=== PATIENT | male | born 1985 | race African-American/Black ===

== ENCOUNTER 2016-09-09 15:54 | Inpatient (IN) | payer MEDICAID, OTHER ==
[~2016-09-09] VITALS: Ht 172.7 cm; Wt 81.6 kg
[2016-09-09 16:00] VITALS: BP 119/76; PULSE 59; RESP 18; TEMP 96.9; O2SAT 99
[2016-09-09] MEDS: SODIUM CHLOR 0.9% 1000 ML INJ 1,000 ML IV SCH ×2 (16:20→20:46)
--- NOTE | 2016-09-09 16:24 | HHI.HP ---
[facility] No Primary Care Physician Admission Diagnosis appendicitis, Crohn's Diagnoses: Chief Complaint: abdominal pain Travel History International Travel<30 Days: No Contact w/Intl Traveler <30 Da: No Traveled to Known Affected Are: No History of Present Illness 31 year old male w/ hx of Crohn's presented to hospital with right side abdominal pain that started 3am this morning. The pain was achey. He admits to doing alot of abdominal exercises prior and says in the past that has precipitated a Crohn's flare up for him. He says if feels like his last Crohn's exacerbation which was 1.5 years ago. He was first diagnosed with Crohn's 9 years ago. His last colonoscopy and EGD was 2-[address] Greene. Per pt, the colonoscopy indicated healing ulcers and the EGD showed that his disease was "worse on top half." He has tried asacol in the past but had a reaction to it. His last exacerbation 1.5 y ago he was in the hospital for and they told him he had an obstruction, put him on liquid diet, and gave him prednisone. At that time it was initially thought he had appendicitis. He takes not regular medications for Crohn's. He felt improvement in frequency of flareups 3 y ago since switching to healthier organic diet. No n/v, diarrhea, fever. Review of Systems Except as stated in HPI: all other systems reviewed are Neg Past Family Social History Past Medical History Crohn's Asthma- childhood Past Surgical History Cyst removal left wrist Allergies: Coded Allergies: Penicillin (Verified Allergy, Severe, Itching, 09/09/16) Family History Mother HTN Social History Denies ETOH, tobacco, illicit drug use Physical Exam Physical Exam GENERAL: This is a well-nourished, well-developed patient, in no apparent distress. SKIN: No rashes, ecchymoses or lesions. Cool and dry. HEAD: Atraumatic. Normocephalic. No temporal or scalp tenderness. EYES: Pupils equal round and reactive. Extraocular motions intact. No scleral icterus. No injection or drainage. ENT: Nose without bleeding, purulent drainage or septal hematoma. Throat without erythema, tonsillar hypertrophy or exudate. Uvula midline. Airway patent. NECK: Trachea midline. No JVD or lymphadenopathy. Supple, nontender, no meningeal signs. CARDIOVASCULAR: Regular rate and rhythm without murmurs, gallops, or rubs. RESPIRATORY: Clear to auscultation. Breath sounds equal bilaterally. No wheezes , rales, or rhonchi. GASTROINTESTINAL: Abdomen soft, tenderness RUQ, epigastric,nondistended. No hepato-splenomegaly, or palpable masses. No guarding. MUSCULOSKELETAL: Extremities without clubbing, cyanosis, or edema. No joint tenderness, effusion, or edema noted. No calf tenderness. Negative Homans sign bilaterally. NEUROLOGICAL: Awake and alert. Cranial nerves II through XII intact. Motor and sensory grossly within normal limits. Five out of 5 muscle strength in all muscle groups. Normal speech. Assessment and Plan Assessment and Plan Abdominal pain Cholecystitis Crohn's exacerbation WBC normal. No temp. CT 09-09-16 --> findings most consistent with acute appendicitis in this pt w/ hx Crohns disease. Patient with hx Crohn's, however not on any medication for it, says she is managing it naturally. Used to follow with Dr Greene as OP. Last colonoscopy 2- 3 yrs ago w/ Dr Greene and indicated healing ulcers; EGD showed worse disease on "top half" per pt. No n/v or diarrhea or blood in stool. GS consulted for poss appendicitis Consult GI , appreciate recommendations Seen b y surgery . CT abd scan reviewed and also findings discussed with Dr Oden. He recommends restarting patient pentasa and start steroids.Start pentasa and prednisone Start clears, not a surgical candidate Consider colonoscopy and EGD DVT ppx SCD/TEDs Discussed Condition With patient, nurse, ED physician , Dr Carpenter GI specialist, Dr Oden surgeon Physician Certification 2 Midnight Certification Type: Admission for Inpatient Services Order for Inpatient Services The services are ordered in accordance with Medicare regulations or non- Medicare payer requirements, as applicable. In the case of services not specified as inpatient-only, they are appropriately provided as inpatient services in accordance with the 2-midnight benchmark. Estimated LOS (days): 3 days is the estimated time the patient will need to remain in the hospital, assuming treatment plan goals are met and no additional complications. Post-Hospital Plan: Home Aster Baeza MD September 09, 2016 16:24
[2016-09-09] MEDS ORDERED: HYDROmorphone HCL PF 1 MG/ML VIAL IV PRN (16:30)
[2016-09-09] MEDS ORDERED: SODIUM CHLORIDE 0.9% FLUSH 10 ML FLUSH IV FLUSH PRN (16:30)
[2016-09-09] MEDS ORDERED: ACETAMINOPHEN/HYDROcodone 325 MG/5 MG TAB PO PRN (16:30)
[2016-09-09] MEDS ORDERED: NALOXONE HCL 0.4 MG/ML AMP IV PRN (16:30)
[2016-09-09] MEDS ORDERED: PROCHLORPERAZINE 25 MG SUPP RECTAL PRN (16:30)
[2016-09-09] MEDS ORDERED: ACETAMINOPHEN 325 MG TAB PO PRN ×2 (16:30)
[2016-09-09] MEDS ORDERED: TEMAZEPAM 15 MG CAP PO PRN (16:30)
[2016-09-09] MEDS ORDERED: ACETAMINOPHEN/HYDROcodone 325 MG/7.5 MG TAB PO PRN (16:30)
[2016-09-09] MEDS ORDERED: ONDANSETRON HCL 4 MG/2 ML VIAL IVP PRN (16:30)
--- NOTE | 2016-09-09 17:55 | PD.CONS ---
HPI History of Present Illness This is a 31 year old [gentleman] w/ hx of Crohn's presented to hospital with right side abdominal pain that started 3am this morning. The pain was achey. He admits to doing alot of abdominal exercises prior and says in the past that has precipitated a Crohn's flare up for him. He says if feels like his last Crohn's exacerbation which was 1.5 years ago. He was first diagnosed with Crohn's 9 years ago. His last colonoscopy and EGD was 2-[address] Greene. Per pt, the colonoscopy indicated healing ulcers and the EGD showed that his disease was "worse on top half." He has tried asacol in the past but had a reaction to it. His last exacerbation 1.5 y ago he was in the hospital for and they told him he had an obstruction, put him on liquid diet, and gave him prednisone. At that time it was initially thought he had appendicitis. He takes not regular medications for Crohn's. He felt improvement in frequency of flareups 3 y ago since switching to healthier organic diet. No n/v, diarrhea, fever. (Cristine Garcia) PFSH Past Medical History asthma- childhood Past Surgical History cyst removal left wrist (Cristine Garcia) Coded Allergies: Penicillin (Verified Allergy, Severe, Itching, 09/09/16) Medications Current Medications Medications (Trade) Dose Ordered Sig/Hansa Route PRN Reason Start Time Stop Time Status Last Admin Dose Admin Sodium Chloride (NS 1000 ml Inj) 1,000 ml @ 100 mls/hr Q10H IV 09/09/16 16:20 UNV Sodium Chloride (NS Flush) 2 ml UNSCH PRN IV FLUSH FLUSH AFTER USING IV ACCESS 09/09/16 16:30 UNV Sodium Chloride (NS Flush) 2 ml BID IV FLUSH 09/09/16 21:00 Acetaminophen (Tylenol) 650 mg Q4H PRN PO TEMP > 100.4 09/09/16 16:30 UNV Ondansetron HCl (Zofran Inj) 4 mg Q6H PRN IVP NAUSEA OR VOMITING 09/09/16 16:30 Prochlorperazine (Compazine Supp) 25 mg Q12H PRN PA NAUSEA OR VOMITING 09/09/16 16:30 UNV Temazepam (Restoril) 15 mg HS PRN PO INSOMNIA 09/09/16 16:30 UNV Acetaminophen (Tylenol) 650 mg Q6H PRN PO PAIN SCALE 1 TO 2 09/09/16 16:30 UNV Acetaminophen/ Hydrocodone Bitart ([place] 5-325 Mg) 1 tab Q4H PRN PO PAIN SCALE 3 TO 5 09/09/16 16:30 UNV Acetaminophen/ Hydrocodone Bitart ([place] 7.5-325 Mg) 1 tab Q4H PRN PO PAIN SCALE 6 TO 10 09/09/16 16:30 UNV Hydromorphone HCl (Dilaudid Pf Inj) 1 mg Q3H PRN IV BREAKTHROUGH PAIN 09/09/16 16:30 UNV Naloxone HCl (Narcan Inj) 0.4 mg UNSCH PRN IV SEE LABEL COMMENTS 09/09/16 16:30 UNV Family History HTN- mother Social History denies ETOH, tobacco, illicit drug use (Cristine Garcia) Review of Systems Constitutional: DENIES: Fever Ears, nose, mouth, throat: DENIES: Hearing loss Respiratory: DENIES: Cough Cardiovascular: DENIES: Chest pain Gastrointestinal: COMPLAINS OF: Abdominal pain, DENIES: Black stools, Bloody stools, Constipation, Diarrhea, Nausea, Vomiting Genitourinary: DENIES: Hematuria Musculoskeletal: DENIES: Joint pain Integumentary: DENIES: Abnormal pigmentation Hematologic/lymphatic: DENIES: Bruising Neurologic: DENIES: Abnormal gait Psychiatric: DENIES: Confusion (Cristine Garcia) GI Exam Vitals I&O Vital Signs Date Time Temp Pulse Resp B/P Pulse Ox O2 Delivery O2 Flow Rate FiO2 09/09/16 16:00 96.9 59 18 119/76 99 Physical Examination HEENT: EOMI; normocephalic; atraumatic; no jaundice. CHEST: CTA CARDIAC: RRR ABDOMEN: Soft, nondistended, mild TTP epigastric area and right side abd; no hepatosplenomegaly; bowel sounds are present in all four quadrants. EXTREMITIES: No clubbing, cyanosis, or edema. SKIN: Normal; no rash; no jaundice. GRILL ASSOCIATE: No focal deficits; alert and oriented times three. (Cristine Garcia) Assessment and Plan Plan ASSESSMENT - abdominal pain - WBC WNL. started in RLQ but currently pt has tenderness right side and epigastric area. CT 09-09-16 --> findings most consistent with acute appendicitis in this pt w/ hx Crohns disease. pt with hx Crohn's, not on any medication for it. Last colonoscopy 2-3 yrs ago w/ Dr Greene and indicated healing ulcers; EGD showed worse disease on "top half" per pt. No n/v or diarrhea or blood in stool. GS consulted for poss appendicitis PLAN: - NPO until GS sees pt - clears after GS sees pt, if no surgery - Consider colonoscopy and EGD if emergent appendicitis ruled out - further recommendations as case unfolds This pt was seen by myself and Dr Carpenter and this note is written on her behalf. (Cristine Garcia) Physician Comments seen, examined agree with above awaiting surgical consult we will start Flagyl/cipro, (Estrella Carpenter MD) Cristine Garcia September 09, 2016 17:55 Estrella Carpenter MD September 09, 2016 18:22
[2016-09-09 19:32] LABS: BLOOD, URINE NEG (NEG); COMMENT (UR) CULT NOT INDICATED; CULTURE IF INDICATED CULT NOT INDICATED; GLUCOSE,URINE NEG (NEG); KETONE, URINE TRACE mg/dL (NEG); NITRITE,URINE NEG (NEG); PH, URINE 6.5 (5.0-8.5); SQUAMOUS EPITHELIAL CELL URINE <1 /hpf (0-5); URINE COLOR YELLOW (YELLW/STRAW)
[2016-09-09 20:00] VITALS: BP 117/68; PULSE 60; RESP 17; TEMP 95.6; O2SAT 95
[2016-09-09] MEDS: SODIUM CHLORIDE 0.9% FLUSH 10 ML FLUSH IV FLUSH SCH (20:46)
[2016-09-09] MEDS: metroNIDAZOLE 500 MG INJ 100 ML IV SCH (20:46)
[2016-09-09] MEDS: CIPROFLOXACIN 400 MG PREMIX 200 ML IV SCH (20:46)
[2016-09-09] MEDS: predniSONE 50 MG TAB PO SCH (21:01)
[2016-09-09] MEDS: MESALAMINE 250 MG CAP PO SCH (21:02)
--- NOTE | 2016-09-09 22:31 | MB ---
cc: ROSSY SERRATO DATE OF CONSULTATION 09/09/16 REASON FOR CONSULTATION Rule out appendicitis. HISTORY OF PRESENT ILLNESS Mr. Vásquez is a very pleasant 31-year-old gentleman with a longstanding history of Crohn's disease. Apparently, he was diagnosed as a teenager. He reports multiple previous flare-ups. He states he has been doing well for approximately a year until this morning when he woke up at 3:00 a.m. with some crampy type abdominal pain, mainly in the periumbilical region. The patient reports this is very similar to his previous Crohn's episode approximately a year ago. He states that this episode today was not as severe as his previous episodes. He is followed apparently by Dr. Greene, rehabilitation services coordinator, but is not currently taking any Crohn's medications. He reports no fever or chills. He just describes a crampy type abdominal pain. He states that he is feeling better now. He was initially seen and evaluated in [place] [facility] the [facility] by Dr. Luz. Dr. Luz did a CT scan of the abdomen and pelvis which showed a thickened appendix and she was concerned about possible appendicitis. However, upon further review, the CT also demonstrates thickening and inflammatory change of the terminal ileum which is most consistent with acute Crohn's exacerbation. Surgical consultation was requested for evaluation of the appendicitis and the Crohn's disease. As stated, once the patient arrived to [facility] he states he is feeling much better. He is hungry and would like something to eat. He states that this is a typical Crohn's flare up for him. He denies any right lower quadrant abdominal pain. He denies any difficulty moving around. Overall, he states he feels pretty good and was wanting to get something to eat. PAST MEDICAL HISTORY 1. Crohn's disease 2. Asthma. PAST SURGICAL HISTORY Cyst removed from his left wrist. MEDICATIONS He takes no active medications at this time. His Crohn's disease is managed by diet according to him. ALLERGIES PENICILLIN SOCIAL HISTORY Denies alcohol or cigarette use. [place] [facility] with his and daughter. FAMILY HISTORY Remarkable for only hypertension. He denies any other Crohn's disease. REVIEW OF SYSTEMS The patient denies any nausea, vomiting, fever or chills. He reports normal bowel movement yesterday that was kind of loose. He denies any right lower quadrant abdominal pain. PHYSICAL EXAMINATION VITAL SIGNS: Temperature is 96.9, pulse is 60, blood pressure 120/70. GENERAL: This is a pleasant -[place] male sitting in bed who appears in no discomfort whatsoever watching TV with his and daughter. HEENT: Pupils equal, round, reactive light. Sclerae are white. Oropharynx is clear and moist. NECK: Supple. No masses. LUNGS: Clear to auscultation bilaterally. HEART: S1, S2, no murmur. ABDOMEN: Soft, Minimal periumbilical tenderness. No rebound or guarding. Active bowel sounds are noted. No right lower quadrant pain. Negative psoas sign, negative Rovsing's sign. EXTREMITIES: Free range of motion x4. NEUROLOGIC: Alert and oriented times three LABORATORY DATA White blood cell count is normal at 6.6, hemoglobin 14, platelet count is 368. He has 82% neutrophils. His electrolytes are all within normal limits. IMAGING STUDIES CT pelvis reviewed with Dr. Roberto Lockhart, demonstrates what to me looks like acute Crohn's exacerbation. He has a distended thickened terminal ileum with fecalization of the small bowel contents. There is also thickening of the cecum. The appendix does appear enlarged, but I do not see any acute inflammatory change directly around the appendix. I believe that the thickened and large appendix is likely secondary to edema from the cecum and terminal ileum from the Crohn's disease. IMPRESSION AND PLAN 1. Acute Crohn's exacerbation. 2. Incidental thickening and enlargement of the appendix likely secondary to the Crohn's disease. At this point, I advised the patient I do not think he has clinical appendicitis. I advised him that I would not recommend surgical intervention in an acute Crohn's exacerbation. I advised him if we attempted to do an appendectomy on him that there was a high chance he would have a fistula where the bowel was resected. He is not interested in surgery at this time. He feels very confident this is an acute Crohn's exacerbation, as it is very similar to his previous events. His states that he had Pentasa before and a steroid taper and this resolved his exacerbation within a day or two previously. I recommended to Dr. Rowe that we get a GI consult and treat him for an acute Crohn's exacerbation. I have advised her he can be started on a diet. I have recommended he be started on steroids and Pentasa as this seemed to work for him before. We will follow him up on his clinical exam over the weekend, but I do not believe this is acute appendicitis. MD SERENA Salinas/ /9:48 PM /10:15 PM
[2016-09-10] VITALS: BP 124/68; PULSE 68; RESP 17; TEMP 97.2; O2SAT 97
[2016-09-10 01:44] VITALS: O2SAT 94
[2016-09-10] MEDS: metroNIDAZOLE 500 MG INJ 100 ML IV SCH ×2 (04:32→11:36)
[2016-09-10 07:31] LABS: ALKALINE PHOSPHATASE 62 U/L (45-117); ALT (GPT) 39 U/L (12-78); ANION GAP 8 MEQ/L (5-15); AST (GOT) 29 U/L (15-37); BICARBONATE 24.4 MEQ/L (21.0-32.0); BLOOD UREA NITROGEN 14 MG/DL (7-18); CHLORIDE 105 MEQ/L (98-107); GLOMERULAR FILTRATION RATE 119 ML/MIN (>89); POTASSIUM 4.2 MEQ/L (3.5-5.1); SODIUM (NA) 137 MEQ/L (136-145); TOTAL BILIRUBIN ADULT 0.7 MG/DL (0.2-1.0)
[2016-09-10 08:00] VITALS: BP 108/55; PULSE 63; RESP 16; TEMP 96.3; O2SAT 95
[2016-09-10] MEDS: CIPROFLOXACIN 400 MG PREMIX 200 ML IV SCH (08:08)
[2016-09-10] MEDS: predniSONE 50 MG TAB PO SCH (08:10)
[2016-09-10] MEDS: MESALAMINE 250 MG CAP PO SCH ×2 (08:10→13:31)
[2016-09-10] MEDS: SODIUM CHLORIDE 0.9% FLUSH 10 ML FLUSH IV FLUSH SCH (08:10)
--- NOTE | 2016-09-10 09:14 | HHI.PR ---
Subjective Remarks Says he feels much better. Pain sided. Denies chest pain shortness of breath. No nausea, vomiting, diarrhea or constipation he had normal bowel movement. Since he would like to go home. Says she's been a follow-up with Dr. Greene ( his OP Dr) as outpatient and his will like to do EGD and colonoscopy as outpatient. He wants to go home. Objective Vitals Vital Signs Date Time Temp Pulse Resp B/P Pulse Ox O2 Delivery O2 Flow Rate FiO2 09/10/16 08:00 96.3 63 16 108/55 95 09/10/16 01:44 94 09/10/16 00:00 97.2 68 17 124/68 97 09/09/16 20:00 95.6 60 17 117/68 95 09/09/16 16:00 96.9 59 18 119/76 99 I/O 09/09/16 09/09/16 09/09/16 09/10/16 09/10/16 09/10/16 07:00 15:00 23:00 07:00 15:00 23:00 Intake Total 480 ml 1000 ml Balance 480 ml 1000 ml Intake Oral 480 ml 240 ml IV Total 760 ml # Voids 2 2 Result Diagram: 09/10/16 0540 Objective Remarks GENERAL: This is a well-nourished, well-developed patient, in no apparent distress. SKIN: No rashes, ecchymoses or lesions. Cool and dry. HEAD: Atraumatic. Normocephalic. No temporal or scalp tenderness. EYES: Pupils equal round and reactive. Extraocular motions intact. No scleral icterus. No injection or drainage. ENT: Nose without bleeding, purulent drainage or septal hematoma. Throat without erythema, tonsillar hypertrophy or exudate. Uvula midline. Airway patent. NECK: Trachea midline. No JVD or lymphadenopathy. Supple, nontender, no meningeal signs. CARDIOVASCULAR: Regular rate and rhythm without murmurs, gallops, or rubs. RESPIRATORY: Clear to auscultation. Breath sounds equal bilaterally. No wheezes , rales, or rhonchi. GASTROINTESTINAL: Abdomen soft, nontender, nondistended. No hepato-splenomegaly , or palpable masses. No guarding. MUSCULOSKELETAL: Extremities without clubbing, cyanosis, or edema. No joint tenderness, effusion, or edema noted. No calf tenderness. Negative Homans sign bilaterally. NEUROLOGICAL: Awake and alert. Cranial nerves II through XII intact. Motor and sensory grossly within normal limits. Five out of 5 muscle strength in all muscle groups. Normal speech. A/P Assessment and Plan Abdominal pain Cholecystitis Crohn's exacerbation WBC normal. No temp. CT 09-09-16 --> findings most consistent with acute appendicitis in this pt w/ hx Crohns disease. Patient with hx Crohn's, however not on any medication for it, says she is managing it naturally. Used to follow with Dr Greene as OP. Last colonoscopy 2- 3 yrs ago w/ Dr Greene and indicated healing ulcers; EGD showed worse disease on "top half" per pt. No n/v or diarrhea or blood in stool. GS consulted for poss appendicitis Consult GI , appreciate recommendations Seen b y surgery . CT abd scan reviewed and also findings discussed with Dr Oden. He recommends restarting patient pentasa and start steroids.Start pentasa and prednisone Not a surgical candidate Consider colonoscopy and EGD, however patient improved. and he is refusing colonoscopy /EGD , wants to go home and to follow up as OP with Dr Greene. Says she will do as OP EGD/colonoscopy. Plan to DC patient today if tolerated diet./ Wiill continue abx, pentasa and also tapered dose of prednisone at home. To follow up as OP with PCP and consultants. DVT ppx SCD/TEDs Discussed Condition With patient, nurse Discharge plan: DC home in stable condition Medications per med reconciliation Diet regular as tolerated Activity Ad haylee Follow-up with PCP and consultants as outpatient. To do EGD and colonoscopy as outpatient with his doctor. Aster Baeza MD September 10, 2016 09:14
[2016-09-10 12:00] VITALS: BP 111/60; PULSE 59; RESP 17; TEMP 96.3; O2SAT 97
[2016-09-10] MEDS: SODIUM CHLOR 0.9% 1000 ML INJ 1,000 ML IV SCH (12:20)
--- NOTE | 2016-09-10 12:35 | HHI.GIFU ---
Subjective Remarks Resting in bed. No n/v. No abdominal pain at this time. Wants to eat. Hoping to be discharged today. Did discuss with patient importance of egd/ colonoscopy, but he is very reluctant to stay in hospital because he has plans for Mother's Day. (Michell Lazcano) Objective Vitals I&O Vital Signs Date Time Temp Pulse Resp B/P Pulse Ox O2 Delivery O2 Flow Rate FiO2 09/10/16 12:00 96.3 59 17 111/60 97 09/10/16 08:00 96.3 63 16 108/55 95 09/10/16 01:44 94 09/10/16 00:00 97.2 68 17 124/68 97 09/09/16 20:00 95.6 60 17 117/68 95 09/09/16 16:00 96.9 59 18 119/76 99 I/O 09/09/16 09/09/16 09/09/16 09/10/16 09/10/16 09/10/16 07:00 15:00 23:00 07:00 15:00 23:00 Intake Total 480 ml 1000 ml Balance 480 ml 1000 ml Intake Oral 480 ml 240 ml IV Total 760 ml # Voids 2 2 Laboratory Laboratory Tests Test 09/09/16 09/10/16 17:40 05:40 Urine Color YELLOW Urine Turbidity CLEAR Urine pH 6.5 Urine Specific [place] GREATER THAN 1.050 Urine Protein TRACE Urine Glucose (UA) NEG Urine Ketones TRACE Urine Occult Blood NEG Urine Nitrite NEG Urine Bilirubin NEG Urine Urobilinogen LESS THAN 2.0 Urine Leukocyte Esterase NEG Urine WBC 3 Urine Squamous Epithelial <1 Cells Microscopic Urinalysis Comment CULT NOT INDICATED Sodium Level 137 Potassium Level 4.2 Chloride Level 105 Carbon Dioxide Level 24.4 Anion Gap 8 Blood Urea Nitrogen 14 Creatinine 0.90 Estimat Glomerular Filtration 119 Rate Random Glucose 114 Calcium Level 8.6 Total Bilirubin 0.7 Aspartate Amino Transf 29 (AST/SGOT) Alanine Aminotransferase 39 (ALT/SGPT) Alkaline Phosphatase 62 Total Protein 7.[address] scan abdomen and pelvis with iv contrast (09/09/16)-----> Findings most consistent with acute appendicitis in this patient with history of Crohn's disease. Low density, fat containing lesions in the kidney. These may be angiomyolipoma and could be further evaluated with MRI when the patient is clinically stable. Physical Exam HEENT: Normocephalic; atraumatic; no jaundice. CHEST: CTA CARDIAC: RRR ABDOMEN: Soft, nondistended, nontender; no hepatosplenomegaly; bowel sounds are present in all four quadrants. EXTREMITIES: No clubbing, cyanosis, or edema. SKIN: Normal; no rash; no jaundice. SCALEMAN: No focal deficits; alert and oriented times three. (Michell Lazcano) Assessment and Plan Plan ASSESSMENT: - Crohn's exacerbation. Dx ~5 years ago. Most recently on Pentasa, but has been off for the past 3 years. Last colonoscopy was 3 years ago, Dr. Greene, does not currently have insurance and therefore has not been to see him recently. States he has both small and large bowel disease. CT scan abdomen and pelvis with iv contrast (09/09/16)-----> Findings most consistent with acute appendicitis in this patient with history of Crohn's disease. Low density, fat containing lesions in the kidney. These may be angiomyolipoma and could be further evaluated with MRI when the patient is clinically stable. He is on Pentasa and Prednisone. Recommend further evaluation with EGD/Colonoscopy, but patient is very reluctant to go home tomorrow, as he has plans for Mother's Day. If patient does leave, recommend FU in office for further evaluation and treatment. - Abdominal pain, related to above. IMPROVED. PLAN: - Diet as tolerated - Cont. Pentasa - Cont. Prednisone - Cont. Cipro/Flagyl - CBC in am - Supportive care - Further recommendations to follow based on results of above - PT seen and examined by Dr. Carpenter and myself and this note is written on her behalf. - This pt was seen by myself and Dr Carpenter and this note is written on her behalf. (Michell Lazcano) Physician Comments seen, examined agree with above egd/colonoscopy can be done op at his convenience if he is not willing to stay in hospital until Monday,information provided to contact office if dc fu gi in 1-2 weeks Pentasa as ordered advice to call office to enroll in patient assistance program also may consider research study if willing to-information provided if he remains hospitalized egd/colon Monday, if not op if he wishes to go home ok to dc on current regimen (Estrella Carpenter MD) JaleesaMichell Reyna AUGUSTIN September 10, 2016 12:35 Estrella Carpenter MD September 10, 2016 13:40
[2016-09-10] MEDS ORDERED: PRED10PA PO (13:25)
[2016-09-10] MEDS ORDERED: MESA250 PO (13:25)
--- NOTE | 2016-09-10 13:25 | HHI.DCPOC ---
Discharge Care Plan Goals to Promote Your Health * To prevent worsening of your condition and complications * To maintain your health at the optimal level Directions to Meet Your Goals Take your medications as prescribed Follow your dietary instruction Follow activity as directed Keep your appointments as scheduled Take your immunizations and boosters as scheduled If your symptoms worsen call your PCP, if no PCP go to Urgent Care Center or Emergency Room Smoking is Dangerous to Your Health. Avoid second hand smoke Call the 24-hour hour crisis hotline for domestic abuse at Aster Baeza MD September 10, 2016 13:25
--- NOTE | 2016-09-10 13:30 | EKG ---
Date Performed: 09/09/2016 Time Performed: 17:05:37 PTAGE: 31 years EKG: SINUS BRADYCARDIA BORDERLINE ECG NO PREVIOUS TRACING DOCTOR: Edwina Dent Interpretating Date/Time 09/10/2016 13:28:11
[2016-09-10] MEDS ORDERED: CIPR500T2 PO (13:46)
[2016-09-10] MEDS ORDERED: METR-1 PO (13:46)
[2016-09-10 16:00] VITALS: BP 117/73; PULSE 75; RESP 16; TEMP 97; O2SAT 97
== END 2016-09-10 17:30 | disposition home or self-care (01) | DRG 387 ==
LOC: HOR 15:54 → N07B 16:04
PROVIDERS: ADMIT Hospitalist; ATTEND Hospitalist
DX: K50.918 Crohn's disease, unspecified, with other complication (principal); J45.909 Unspecified asthma, uncomplicated; Z88.0 Allergy status to penicillin
CPT/HCPCS: 74177; 80053; 81001; 83690; 85025; 85610; 85730; 93005; 96374; 99281; J0744; J2270; J7030; J7512; Q9967